=== PATIENT | female | born 2000 | race Hispanic/Latino ===

== ENCOUNTER 2020-06-17 05:39 | Emergency (ER) | payer BC ==
[2020-06-17] MEDS ORDERED: Ibuprofen 200 MG TAB ONE (06:01)
[2020-06-17] MEDS ORDERED: Penicillin V Potassium 250 MG TAB ONE (06:01)
== END 2020-06-17 06:08 | disposition home or self-care (01) ==
LOC: MADERS 05:39
DX: K02.9 Dental caries, unspecified (principal); K03.81 Cracked tooth; F32.9 Major depressive disorder, single episode, unspecified; M41.9 Scoliosis, unspecified
CPT/HCPCS: 99282

== ENCOUNTER 2024-08-13 08:14 | Emergency (ER) | payer BC, OTHER | END 2024-08-13 09:00 | disposition home or self-care (01) | LOC: MADERS 08:14 | DX: J06.9 Acute upper respiratory infection, unspecified (principal) | CPT/HCPCS: 99283 ==